=== PATIENT | male | born 1990 ===

== ENCOUNTER 2018-03-28 10:47 | Day surgery (SDC) | payer OTHER ==
[~2018-03-28] VITALS: Ht 170.2 cm; Wt 63.5 kg
[2018-03-28] VITALS (8 sets, daily range): BP systolic 98–114; BP diastolic 34–62
[2018-03-28] MEDS ORDERED: cefazolin/dext.iso 2gm/50ml 50 ML IV ONE (11:20)
[2018-03-28 11:25] LABS: BASOPHILS % (AUTO) 0.4 % (0-1); EOSINOPHILS # (AUTO) 0.3 X10'3 (0-0.9); EOSINOPHILS % (AUTO) 4.3 % (0-6); HEMATOCRIT 43.7 % (42.0-52.0); HEMOGLOBIN 14.7 g/dl (14.0-17.9); LYMPHOCYTES # (AUTO) 1.8 X10'3 (1.1-4.8); LYMPHOCYTES % (AUTO) 30.5 % (21-51); MEAN CORPUSCULAR HEMOGLOBIN 28.7 PG (27.0-31.0); MEAN CORPUSCULAR HGB CONC 33.6 % (33.0-36.5); MEAN CORPUSCULAR VOLUME 85.3 FL (78-98); MEAN PLATELET VOLUME 8.6 FL (7.4-10.4); MONOCYTES # (AUTO) 0.6 X10'3 (0-0.9); MONOCYTES % (AUTO) 10.2 % (2-12); NEUTROPHILS # (AUTO) 3.2 X10'3 (1.8-7.7); NEUTROPHILS % (AUTO) 54.6 % (42-75); PLATELET COUNT 163 X10'3 (140-440); RED BLOOD COUNT 5.12 X10'6 (4.70-6.10); RED CELL DISTRIBUTION WIDTH 14.7 % (11.5-14.5); WHITE BLOOD COUNT 5.9 X10'3 (4.5-11.0)
[2018-03-28 11:40] LABS: ALANINE AMINOTRANSFERASE 29 U/L (12-78); ALBUMIN 3.6 G/DL (3.4-5.0); ALKALINE PHOSPHATASE 56 IU/L (46-116); ANION GAP 8 (8-16); ASPARTATE AMINO TRANSFERASE 23 U/L (10-37); BILIRUBIN,TOTAL 0.5 MG/DL (0.1-1.0); BLOOD UREA NITROGEN 14 MG/DL (7-18); BUN/CREATININE RATIO 13.3 (5.4-32.0); CALCIUM 8.7 MG/DL (8.5-10.1); CHLORIDE 104 MMOL/L (99-107); CREATININE 1.05 MG/DL (0.60-1.10); GLUCOSE 85 MG/DL (70-104); SODIUM 140 MMOL/L (135-145); TOTAL CARBON DIOXIDE 28.4 MMOL/L (24-32); TOTAL PROTEIN 7.1 G/DL (6.4-8.2); eGFR 85 ML/MIN
[2018-03-28] MEDS ORDERED: ceFAZolin 1000mg inj ONE (14:42)
[2018-03-28] MEDS ORDERED: sevoflurane 250ml liquid IH ONE (15:32)
[2018-03-28] MEDS ORDERED: MIDAZolam 5mg/5ml vial ONE (15:32)
[2018-03-28] MEDS ORDERED: fentaNYL /PF 50mcg/ml 5ml ampule ONE (15:32)
[2018-03-28] MEDS ORDERED: ROPIVAcaine 0.5% (5mg/ml) 30ml vial ONE (15:53)
[2018-03-28] MEDS ORDERED: LIDOcaine 2% (20mg/ml) 5ml vial ONE (15:53)
[2018-03-28] MEDS ORDERED: dexamethasone sod phosphate 4mg/ml inj. ONE (15:53)
[2018-03-28] MEDS ORDERED: ringers solution, lacted 1,000 ML IV SCH (16:02)
[2018-03-28] MEDS ORDERED: meperidine/PF 25mg/ml syringe IV PRN ×2 (16:05)
[2018-03-28] MEDS ORDERED: proCHLORperazine 10 MG/2 ml inj IV PRN (16:05)
[2018-03-28] MEDS ORDERED: morphine 4 MG/ML inj SYRINge IV PRN ×2 (16:05)
[2018-03-28] MEDS ORDERED: ondansetron/PF 4mg/2ml inj IV PRN (16:05)
[2018-03-28] MEDS ORDERED: propofol inj 20 ML IV ONE (16:21)
[2018-03-28] MEDS ORDERED: ondansetron/PF 4mg/2ml inj ONE (16:22)
[2018-03-28] MEDS ORDERED: flumazenil 0.1 mg/ml inj. IV ONE (17:23)
[2018-03-28] MEDS ORDERED: acetaminophen 1,000mg/100ml IV 100 ML IV ONE (17:35)
[2018-03-28] MEDS: meperidine/PF 25mg/ml syringe IV PRN ×2 (17:36→17:49)
[2018-03-29] MEDS ORDERED: ringers solution, lacted 1,000 ML IV SCH (05:00)
[2018-03-29] MEDS ORDERED: famotidine 20mg tablet PO ONE (05:30)
== END 2018-03-28 18:10 | disposition home or self-care (01) ==
LOC: PAS 10:47 → EDBD 14:30 → EDAGE 14:30 → EEVIPCON 14:30 → PAS 18:10
PROVIDERS: ATTEND Orthopaedic Surgery
DX: S82.61XA Displaced fracture of lateral malleolus of right fibula, initial encounter for closed fracture (principal); M25.371 Other instability, right ankle; G89.18 Other acute postprocedural pain; G47.33 Obstructive sleep apnea (adult) (pediatric); J45.998 Other asthma; X58.XXXA Exposure to other specified factors, initial encounter; Y93.89 Activity, other specified; Y92.89 Other specified places as the place of occurrence of the external cause; Y99.8 Other external cause status
CPT/HCPCS: 27695; 27792; 36415; 64450; 80053; 85025; A6449; C1713; J0131; J0690; J1100; J2001; J2175; J2250; J2405; J2704; J2795; J3010; J3490; J7120; A7000